=== PATIENT | female | born 1995 | race Caucasian/White ===

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

== ENCOUNTER 2017-07-18 18:50 | Emergency (ER) | payer SELFPAY ==
[~2017-07-18] VITALS: Ht 167.6 cm; Wt 72.8 kg
[2017-07-18 18:56] VITALS: BP 121/68; PULSE 90; RESP 16; TEMP 98.4; O2SAT 98
[2017-07-18] MEDS ORDERED: PROCHLORPERAZINE INJ 10 MG/2 ML VIAL IV PUSH ONE (19:30)
[2017-07-18] MEDS ORDERED: KETOROLAC TROMETHAMINE 30 MG/ML (IVP) VIAL IV PUSH ONE (19:30)
[2017-07-18] MEDS ORDERED: SODIUM CHLOR 0.9% 1000 ML INJ 1,000 ML IV ONE (19:30)
--- NOTE | 2017-07-18 19:31 | PD ---
HPI Chief Complaint: Headache Time Seen by Provider: 19:08 Travel History International Travel<30 days: No Contact w/Intl Traveler<30days: No Traveled to known affect area: No History of Present Illness HPI This 22-year-old female is complaining of bilateral throbbing headache. She says she has a history of migraines for the last 8 years. This is similar to previous headaches as throbbing bilateral headache. She has some nausea but has not vomited. PFSH Past Medical History Asthma: Yes Anxiety: Yes Developmental Delay: No Diminished Hearing: No Headaches: Yes (MIGRAINES) Respiratory: Yes (asthma as child) Immunizations Current: Yes Migraines: Yes Tetanus Vaccination: Unknown Influenza Vaccination: No ?: Unknown LMP: 07/15/2017 : 0 Past Surgical History Surgical History: No Previous Surgery Social History Alcohol Use: Yes (OCC) Tobacco Use: Yes (11/17 PPD) Substance Use: No Allergies-Medications (Allergen,Severity, Reaction): Coded Allergies: ceftriaxone (Verified Allergy, Severe, RASH, 07/18/17) diphenhydramine (Verified Allergy, Severe, HIVES W/ LIQUID BENADRYL, ) hyoscyamine (Verified Allergy, Severe, SHALLOW BREATHING, 07/18/17) penicillin G (Verified Allergy, Severe, RASH, 07/18/17) hydrocodone (Unverified Allergy, Unknown, Nausea/Vomiting, 07/18/17) Reported Meds & Prescriptions Reported Meds & Active Scripts Active No Active Prescriptions or Reported Medications Review of Systems General / Constitutional: No: Fever, Chills Eyes: No: Diploplia, Photophobia HENT: Positive: Headaches, No: Vertigo Cardiovascular: No: Chest Pain or Discomfort, Palpitations Respiratory: No: Cough, Shortness of Breath Gastrointestinal: Positive: Nausea, No: Vomiting Genitourinary: No: Urgency, Frequency Musculoskeletal: No: Weakness Physical Exam Narrative GENERAL: Well-developed female SKIN: Focused skin assessment warm/dry. HEAD: Atraumatic. Normocephalic. EYES: Pupils equal and round. No scleral icterus. No injection or drainage. ENT: No nasal bleeding or discharge. Mucous membranes pink and moist. NECK: Trachea midline. No JVD. Neck is supple CARDIOVASCULAR: Regular rate and rhythm. No murmur appreciated. RESPIRATORY: No accessory muscle use. Clear to auscultation. Breath sounds equal bilaterally. GASTROINTESTINAL: Abdomen soft, non-tender, nondistended. Hepatic and splenic margins not palpable. MUSCULOSKELETAL: No obvious deformities. No clubbing. No cyanosis. No edema. NEUROLOGICAL: Awake and alert. No obvious cranial nerve deficits. Motor grossly within normal limits. Normal speech. PSYCHIATRIC: Appropriate mood and affect; insight and judgment normal. Data Data Last Documented VS Vital Signs Date Time Temp Pulse Resp B/P (MAP) Pulse Ox O2 Delivery O2 Flow Rate FiO2 07/18/17 20:32 17 07/18/17 18:56 98.4 90 121/68 (85) 98 Orders Orders Sodium Chlor 0.9% 1000 Ml Inj (Ns 1000 M (07/18/17 19:30) Prochlorperazine Inj (Compazine Inj) (07/18/17 19:30) Ketorolac Inj (Toradol Inj) (07/18/17 19:30) MDM Medical Decision Making Medical Screen Exam Complete: Yes Emergency Medical Condition: Yes Medical Record Reviewed: Yes Differential Diagnosis Differential includes migraine headache, tension headache Narrative Course Patient has been given IV fluids and Toradol and Compazine and reports improvement in her headache Diagnosis Primary Impression: Migraine headache Qualified Codes: G43.009 - Migraine without aura, not intractable, without status migrainosus Scripts No Active Prescriptions or Reported Meds Disposition: 01 DISCHARGE HOME Condition: Stable Horace Smith MD Jul 18, 2017 19:31
[2017-07-18 20:10] VITALS: BP 113/63; PULSE 60; RESP 17; TEMP 97.8; O2SAT 99
[2017-07-18 20:32] VITALS: RESP 17
== END 2017-07-18 20:56 | disposition home or self-care (01) ==
LOC: PHED 18:50
DX: G43.009 Migraine without aura, not intractable, without status migrainosus (principal); R11.0 Nausea; F17.200 Nicotine dependence, unspecified, uncomplicated; Z87.09 Personal history of other diseases of the respiratory system; Z86.59 Personal history of other mental and behavioral disorders; Z86.69 Personal history of other diseases of the nervous system and sense organs
CPT/HCPCS: 96361; 96374; 96375; 99284; J0780; J1885; J7030

== ENCOUNTER 2017-10-25 13:06 | Emergency (ER) | payer MEDICAID ==
[~2017-10-25] VITALS: Ht 167.6 cm; Wt 72.3 kg
[2017-10-25 13:08] VITALS: BP 133/69; PULSE 63; RESP 16; TEMP 97.6; O2SAT 100
--- NOTE | 2017-10-25 13:27 | PD ---
HPI Chief Complaint: Dizziness Time Seen by Provider: 13:15 Travel History International Travel<30 days: No Contact w/Intl Traveler<30days: No Traveled to known affect area: No History of Present Illness HPI PATIENT STATES THAT SHE HAS BEEN HAVING EPISODES OF DIZZINESS, INTERMITTENT, WITHOUT ANY APPARENT AGGRAVATING/ALLEVIATING FACTORS. PT DENIES ASSOC FACTORS OF WARNER/N/V/D/CP/ABDPAIN/BACK PAIN/NUMBNESS OR LATERALIZING WEAKNESS. PATIENT ALSO STATED THAT SHE WAS 2 WEEKS LATE FOR HER PERIOD. DENIES ANY PELVIC PAIN OR VAGINAL DISCHARGE. CHART AND RN NOTES REVIEWED ALL: MULTIPLE AND REVIEWED PCP PMHX:CHRONIC MIGRAINE, CHILDHOOD ASTHMA PSHX: DENIES PFSH Past Medical History Hx Anticoagulant Therapy: No Asthma: Yes Anxiety: Yes Developmental Delay: No Diabetes: No Diminished Hearing: No Headaches: Yes (MIGRAINES) Respiratory: Yes (asthma as child) Immunizations Current: Yes Migraines: Yes ?: Unknown : 0 Social History Alcohol Use: Yes (OCC) Tobacco Use: Yes (1/2 PPD) Substance Use: No Allergies-Medications (Allergen,Severity, Reaction): Coded Allergies: ceftriaxone (Verified Allergy, Severe, RASH, 10/25/17) diphenhydramine (Verified Allergy, Severe, HIVES W/ LIQUID BENADRYL, 10/25) hyoscyamine (Verified Allergy, Severe, SHALLOW BREATHING, 10/25/17) penicillin G (Verified Allergy, Severe, RASH, 10/25/17) hydrocodone (Unverified Allergy, Unknown, Nausea/Vomiting, 10/25/17) Reported Meds & Prescriptions Reported Meds & Active Scripts Active No Active Prescriptions or Reported Medications Review of Systems Except as stated in HPI: all other systems reviewed are Neg General / Constitutional: No: Fever Eyes: No: Visual changes HENT: Positive: Lightheadedness Cardiovascular: No: Chest Pain or Discomfort Respiratory: No: Shortness of Breath Gastrointestinal: No: Abdominal Pain Genitourinary: No: Dysuria Musculoskeletal: No: Pain Skin: No Rash Neurologic: No: Weakness Psychiatric: No: Depression Endocrine: No: Polydipsia Hematologic/Lymphatic: No: Easy Bruising Physical Exam Narrative GENERAL: SKIN: Warm and dry. HEAD: Atraumatic. Normocephalic. EYES: Pupils equal and round. No scleral icterus. No injection or drainage. ENT: No nasal bleeding or discharge. Mucous membranes pink and moist. NECK: Trachea midline. No JVD. CARDIOVASCULAR: Regular rate and rhythm. RESPIRATORY: No accessory muscle use. Clear to auscultation. Breath sounds equal bilaterally. GASTROINTESTINAL: Abdomen soft, non-tender, nondistended. MUSCULOSKELETAL: Extremities without clubbing, cyanosis, or edema. No obvious deformities. NEUROLOGICAL: Awake and alert. No obvious cranial nerve deficits. Motor grossly within normal limits. Five out of 5 muscle strength in the arms and legs. Normal speech. PSYCHIATRIC: Appropriate mood and affect; insight and judgment normal. Data Data Last Documented VS Vital Signs Date Time Temp Pulse Resp B/P (MAP) Pulse Ox O2 Delivery O2 Flow Rate FiO2 10/25/17 13:41 70 16 122/59 (80) 84 16 135/67 (89) 89 16 122/64 (83) 10/25/17 13:08 97.6 100 Orders Orders Electrocardiogram (10/25/17 13:15) Urinalysis - C+S If Indicated (10/25/17 13:15) Orthostatic Vital Signs (10/25/17 13:15) Ed Urine Pregnancytest Poc (10/25/17 13:15) Drug Screen, Random Urine (10/25/17 13:15) Blood Glucose (10/25/17 13:15) Ct Brain W/O Iv Contrast(Rout) (10/25/17 13:22) Urine Culture (10/25/17 13:20) Labs Laboratory Tests Test 10/25/17 13:20 Urine Collection Type CLEAN CATCH Urine Color STRAW Urine Turbidity CLEAR Urine pH 6.0 Urine Specific [place] 1.009 Urine Protein NEG mg/dL Urine Glucose (UA) NEG mg/dL Urine Ketones NEG mg/dL Urine Occult Blood TRACE Urine Nitrite NEG Urine Bilirubin NEG Urine Leukocyte Esterase NEG Urine RBC 0-3 /hpf Urine WBC 0-2 /hpf Urine Squamous Epithelial Cells 6-8 /hpf Urine Bacteria MOD /hpf Microscopic Urinalysis Comment CULTURE INDICATED Urine Opiates Screen NEG Urine Barbiturates Screen NEG Urine Amphetamines Screen NEG Urine Benzodiazepines Screen NEG Urine Cocaine Screen NEG Urine Cannabinoids Screen NEG MDM Medical Decision Making Medical Screen Exam Complete: Yes Emergency Medical Condition: Yes Medical Record Reviewed: Yes Interpretation(s) NSR 82, NL INTERVALS, NO STEMI PATTERN PULSE OX 97, RA, NORMAL AND WITH GOOD PLETH WAVE Differential Diagnosis HYPOGLYCEMIA V RELATED V ORTHOSTASIS V BRAIN MASS V ICH V SINUSITIS V DYSRYTHMIA V UTI V DRUG USE Narrative Course NEGATIVE TEST, NONDIAGNOSTIC EKG, NO ORTHOSTASIS PRESENT EITHER. CT HEAD DOES NOT SHOW MASS/ICH/SINUSITIS...HOWEVER YOUR URINE DID SHOW A URINARY TRACT INFECTION Diagnosis Primary Impression: Dizziness Additional Impression: UTI (urinary tract infection) Qualified Codes: N30.00 - Acute cystitis without hematuria Patient Instructions: General Instructions, Urinary Tract Infection in Women ( ED) Additional Instructions: FOLLOWUP WITH YOUR PRIMARY CARE PHYSICIAN FOR ADDITIONAL TESTING FOR YOUR DIZZINESS. TODAY YOU WERE NOT , YOU WERE NOT DEHYDRATED, AND DID NOT HAVE LOW BLOOD SUGAR. ALSO YOUR CAT SCAN DID NOT SHOW BRAIN BLEED, BRAIN MASS OR SINUS INFECTION....YOUR EKG WAS NORMAL....HOWEVER YOU DID HAVE A BLADDER INFECTION Scripts Nitrofurantoin Monohydrate Macrocrystals (Macrobid) 100 Mg Capsule 100 MG PO BID for Infection, #14 CAP 0 Refills Prov: Chicho Leahy MD 10/25/17 Disposition: 01 DISCHARGE HOME Condition: Stable Chicho Leahy MD Oct 25, 2017 13:27
[2017-10-25 13:30] LABS: BLOOD, URINE TRACE (NEG); GLUCOSE,URINE NEG (NEG); KETONE, URINE NEG (NEG); NITRITE,URINE NEG (NEG)
[2017-10-25 13:36] LABS: METHOD OF COLLECTION CLEAN CATCH; URINE COLOR STRAW (YELLW/STRAW); WBC, URINE 0-2 /hpf (0-5)
[2017-10-25 13:37] LABS: BACTERIA, URINE MOD /hpf; COMMENT (UR) CULTURE INDICATED; CULTURE IF INDICATED CULTURE INDICATED; RBC, URINE 0-3 /hpf (0-3)
[2017-10-25 13:41] VITALS: BP_SYST 122; BP_SYST 135; BP_DIAS 59; BP_DIAS 64; BP_DIAS 67; RESP 16
--- NOTE | 2017-10-25 14:05 | RADRPT ---
EXAM DATE/TIME: 10/25/2017 13:51 [facility] COMPARISON: CT BRAIN W/O CONTRAST, April 25, 2012, 0:42. INDICATIONS : Dizziness. RADIATION DOSE: 57.75 CTDIvol (mGy) MEDICAL HISTORY : None SURGICAL HISTORY : None. ENCOUNTER: Initial ACUITY: 2 weeks PAIN SCALE: 0/10 LOCATION: cranial TECHNIQUE: Multiple contiguous axial images were obtained of the head. Using automated exposure control and adj ustment of the mA and/or kV according to patient size, radiation dose was kept as low as reasonably a chievable to obtain optimal diagnostic quality images. DICOM format image data is available electro nically for review and comparison. FINDINGS: CEREBRUM: The ventricles are normal for age. No evidence of midline shift, mass lesion, hemorrhage or acute in farction. No extra-axial fluid collections are seen. POSTERIOR FOSSA: The cerebellum and brainstem are intact. The 4th ventricle is midline. The cerebellopontine angle i s unremarkable. EXTRACRANIAL: The visualized portion of the orbits is intact. SKULL: The calvaria is intact. No evidence of skull fracture. No significant change compared to the prior study. CONCLUSION: Normal examination for a patient of this age. No significant change has occurred. Aubrey Rosales MD on October 25, 2017 at 14:02 Board Certified Radiologist. This report was verified electronically.
[2017-10-25] MEDS ORDERED: MACR100C2 PO (14:11)
[2017-10-25 14:23] VITALS: BP 126/67
--- NOTE | 2017-10-26 17:43 | EKG ---
Date Performed: 10/25/2017 Time Performed: 13:24:20 PTAGE: 22 years EKG: Sinus rhythm NORMAL ECG NO PREVIOUS TRACING DOCTOR: Orlin Julio Interpretating Date/Time 10/26/2017 17:41:49
== END 2017-10-25 14:35 | disposition home or self-care (01) ==
LOC: PHED 13:06
DX: R42 Dizziness and giddiness (principal); J45.909 Unspecified asthma, uncomplicated; N30.00 Acute cystitis without hematuria; Z72.0 Tobacco use; Z72.89 Other problems related to lifestyle
CPT/HCPCS: 70450; 80307; 81001; 84703; 87086; 93005; 99285

== ENCOUNTER 2018-01-30 06:15 | Emergency (ER) | payer MEDICAID ==
[~2018-01-30] VITALS: Ht 167.6 cm; Wt 69.2 kg
[~2018-01-30 06:15] MED LIST: MACR100C2 PO
[2018-01-30 06:21] VITALS: BP 112/66; PULSE 92; RESP 14; TEMP 98.8; O2SAT 98
[2018-01-30] MEDS ORDERED: BIRTH CONTROL PILL PO (06:27)
--- NOTE | 2018-01-30 07:34 | PD ---
HPI Chief Complaint: Cold / Flu Symptoms Time Seen by Provider: 07:33 Travel History International Travel<30 days: No Contact w/Intl Traveler<30days: No Traveled to known affect area: No History of Present Illness HPI Patient came in complaining of 2 day history of runny nose, cough, sore throat, but denies nausea vomiting or diarrhea at this present time. Also denies any associated factors such as rash, chest pain, headache, abdominal pain, or back pain. Patient states no alleviating or aggravating factors. Allergies to Rocephin, penicillin with a reaction of rash, also states allergy to hydrocodone, however it is more of an adverse effect since she develops nausea. Patient denies any past medical surgical history PFSH Past Medical History Hx Anticoagulant Therapy: No Asthma: Yes Anxiety: Yes Developmental Delay: No Diabetes: No Diminished Hearing: No Headaches: Yes (MIGRAINES) Respiratory: Yes (asthma as child) Immunizations Current: Yes Migraines: Yes Tetanus Vaccination: > 5 Years Influenza Vaccination: No ?: Not LMP: 01/22/18 : 0 Past Surgical History Surgical History: No Previous Surgery Social History Alcohol Use: Yes (OCC) Tobacco Use: Yes (1 PPD) Substance Use: No Allergies-Medications (Allergen,Severity, Reaction): Coded Allergies: ceftriaxone (Verified Allergy, Severe, RASH, 01/30/18) diphenhydramine (Verified Allergy, Severe, HIVES W/ LIQUID BENADRYL, ) hyoscyamine (Verified Allergy, Severe, SHALLOW BREATHING, 01/30/18) penicillin G (Verified Allergy, Severe, RASH, 01/30/18) hydrocodone (Unverified Allergy, Unknown, Nausea/Vomiting, 01/30/18) Reported Meds & Prescriptions Reported Meds & Active Scripts Active Reported [ Control Pill] 1 Tab PO DAILY Review of Systems General / Constitutional: No: Fever Eyes: No: Visual changes HENT: Positive: Headaches, Sore Throat, Rhinorrhea Cardiovascular: No: Chest Pain or Discomfort Respiratory: No: Shortness of Breath Gastrointestinal: No: Abdominal Pain Genitourinary: No: Dysuria Musculoskeletal: No: Pain Skin: No Rash Neurologic: No: Weakness Psychiatric: No: Depression Endocrine: No: Polydipsia Hematologic/Lymphatic: No: Easy Bruising Physical Exam Narrative GENERAL: [-] SKIN: Focused skin assessment warm/dry. HEAD: Atraumatic. Normocephalic. EYES: Pupils equal and round. No scleral icterus. No injection or drainage. ENT: No nasal bleeding or discharge. Mucous membranes pink and moist. Clear rhinorrhea, injected oropharynx but without any exudates. NECK: Trachea midline. No JVD. CARDIOVASCULAR: Regular rate and rhythm. No murmur appreciated. RESPIRATORY: No accessory muscle use. Clear to auscultation. Breath sounds equal bilaterally. GASTROINTESTINAL: Abdomen soft, non-tender, nondistended. Hepatic and splenic margins not palpable. MUSCULOSKELETAL: No obvious deformities. No clubbing. No cyanosis. No edema. NEUROLOGICAL: Awake and alert. No obvious cranial nerve deficits. Motor grossly within normal limits. Normal speech. PSYCHIATRIC: Appropriate mood and affect; insight and judgment normal. Data Data Last Documented VS Vital Signs Date Time Temp Pulse Resp B/P (MAP) Pulse Ox O2 Delivery O2 Flow Rate FiO2 01/30/18 06:42 Room Air 01/30/18 06:21 98.8 92 14 112/66 (81) 98 Orders Orders Influenzae A/B Antigen (01/30/18 06:33) Group A Rapid Strep Screen (01/30/18 06:33) Strep Culture (Group A) (01/30/18 06:35) Tramadol (Ultram) (01/30/18 07:45) MDM Medical Decision Making Medical Screen Exam Complete: Yes Emergency Medical Condition: Yes Medical Record Reviewed: Yes Differential Diagnosis URI versus flu versus strep Narrative Course Screening strep test negative screening flu test is negative. Diagnosis Primary Impression: Viral syndrome Patient Instructions: General Instructions, Viral Syndrome (DC) Scripts Oseltamivir (Tamiflu) 75 Mg Cap 75 MG PO BID for Mgmt Viral Infection for 5 Days, #10 CAP 0 Refills Prov: Chicho Leahy MD 01/30/18 Ondansetron Odt (Zofran Odt) 4 Mg Tab 4 MG SL Q6HR Y for Nausea/Vomiting, #20 TAB 0 Refills Prov: Chicho Leahy MD 01/30/18 Tramadol (Ultram) 50 Mg Tab 50 MG PO Q6H Y for PAIN, #15 TAB 0 Refills Prov: Chicho Leahy MD 01/30/18 Disposition: 01 DISCHARGE HOME Condition: Stable Chicho Leahy MD Jan 30, 2018 07:34
[2018-01-30] MEDS ORDERED: ZOFR4TAB3 SL (07:40)
[2018-01-30] MEDS ORDERED: OSEL75 PO (07:40)
[2018-01-30] MEDS ORDERED: TRAM50 PO (07:40)
[2018-01-30] MEDS ORDERED: traMADol HCL 50 MG TAB PO ONE (07:45)
[2018-01-30 08:42] VITALS: RESP 16
== END 2018-01-30 09:10 | disposition home or self-care (01) ==
LOC: PHED 06:15
DX: B34.9 Viral infection, unspecified (principal); R05 Cough; R07.0 Pain in throat; R09.89 Other specified symptoms and signs involving the circulatory and respiratory systems; F17.200 Nicotine dependence, unspecified, uncomplicated; Z87.09 Personal history of other diseases of the respiratory system; Z86.59 Personal history of other mental and behavioral disorders; Z86.69 Personal history of other diseases of the nervous system and sense organs
CPT/HCPCS: 87081; 87804; 87880; 99284

== ENCOUNTER 2018-04-14 17:49 | Emergency (ER) | payer MEDICAID ==
[~2018-04-14] VITALS: Ht 167.6 cm; Wt 66.3 kg
[~2018-04-14 17:49] MED LIST changes: +BIRTH CONTROL PILL PO; -MACR100C2 PO; +OSEL75 PO; +TRAM50 PO; +ZOFR4TAB3 SL
[2018-04-14 17:53] VITALS: BP 119/78; PULSE 77; RESP 18; TEMP 97.7; O2SAT 96
--- NOTE | 2018-04-14 18:20 | PD ---
HPI Chief Complaint: Headache Time Seen by Provider: 18:12 Travel History International Travel<30 days: No Contact w/Intl Traveler<30days: No Traveled to known affect area: No History of Present Illness HPI 22-year-old female here with 3 day history of headache. She reports a history of migraines. She reports this headache is similar to her prior migraines. There was a gradual onset of a left frontal headache. No sensitivity to light. Denies head injury or trauma. Mild nausea without vomiting. Symptom severity is mild to moderate. No aggravating or alleviating factors. She reports typical treatment for her migraines as a shot of Toradol and Zofran. She denies fever, chills, neck pain, paresthesia or weakness of the extremities. PFSH Past Medical History Medical History: Denies Significant Hx (Significant for asthma, anxiety, migraine headaches) Hx Anticoagulant Therapy: No Asthma: Yes Anxiety: Yes Developmental Delay: No Diabetes: No Diminished Hearing: No Headaches: Yes (MIGRAINES) Respiratory: Yes (asthma as child) Immunizations Current: Yes Migraines: Yes Tetanus Vaccination: Unknown Influenza Vaccination: No ?: Unknown LMP: 03/04/18- 3 DAYS LONG : 0 Social History Alcohol Use: Yes (OCC) Tobacco Use: Yes (1 PPD) Substance Use: No Allergies-Medications (Allergen,Severity, Reaction): Coded Allergies: ceftriaxone (Verified Allergy, Severe, RASH, 04/14/18) diphenhydramine (Verified Allergy, Severe, HIVES W/ LIQUID BENADRYL, ) hyoscyamine (Verified Allergy, Severe, SHALLOW BREATHING, 04/14/18) penicillin G (Verified Allergy, Severe, RASH, 04/14/18) hydrocodone (Unverified Allergy, Unknown, Nausea/Vomiting, 04/14/18) Reported Meds & Prescriptions Reported Meds & Active Scripts Active Tamiflu (Oseltamivir Phosphate) 75 Mg Cap 75 Mg PO BID 5 Days Zofran Odt (Ondansetron Odt) 4 Mg Tab 4 Mg SL Q6HR PRN Ultram (Tramadol HCl) 50 Mg Tab 50 Mg PO Q6H PRN Reported [ Control Pill] 1 Tab PO DAILY Review of Systems Except as stated in HPI: all other systems reviewed are Neg General / Constitutional: No: Fever Eyes: No: Visual changes HENT: Positive: Headaches Cardiovascular: No: Chest Pain or Discomfort Respiratory: No: Shortness of Breath Gastrointestinal: No: Abdominal Pain Genitourinary: No: Dysuria Musculoskeletal: No: Pain Skin: No Rash Physical Exam Narrative GENERAL: Alert and well-appearing 22-year-old female SKIN: Warm and dry. HEAD: Atraumatic. Normocephalic. EYES: Pupils equal and round. EOMs intact. No injection or drainage. No photophobia ENT: No nasal bleeding or discharge. Mucous membranes pink and moist. NECK: Trachea midline. No meningismus. Can freely move the neck. CARDIOVASCULAR: Regular rate and rhythm. RESPIRATORY: No accessory muscle use. Clear to auscultation. Breath sounds equal bilaterally. GASTROINTESTINAL: Abdomen soft, non-tender, nondistended. MUSCULOSKELETAL: Extremities without clubbing, cyanosis, or edema. No obvious deformities. NEUROLOGICAL: Awake and alert. No obvious cranial nerve deficits. Motor grossly within normal limits. Five out of 5 muscle strength in the arms and legs. Normal speech. PSYCHIATRIC: Appropriate mood and affect; insight and judgment normal. Data Data Last Documented VS Vital Signs Date Time Temp Pulse Resp B/P (MAP) Pulse Ox O2 Delivery O2 Flow Rate FiO2 04/14/18 17:53 97.7 77 18 119/78 (92) 96 Orders Orders Ed Urine Pregnancytest Poc (04/14/18 18:14) Ketorolac Inj (Toradol Inj) (04/14/18 18:30) Ondansetron Odt (Zofran Odt) (04/14/18 18:30) MDM Medical Decision Making Medical Screen Exam Complete: Yes Emergency Medical Condition: Yes Differential Diagnosis Migraine headache, tension headache, SAH unlikely Narrative Course 22-year-old female with history of migraines presents with a 3 day history a left frontal headache. She reports this headache is similar to her priors. She has a normal neurologic exam. She is well-appearing. She was given a shot of Toradol, Zofran and observed. She reports symptom improvement is requesting discharge. Diagnosis Primary Impression: Headache Qualified Codes: R51 - Headache Referrals: Primary Care Physician Additional Instructions: Ibuprofen 800 mg as needed for headache. Follow-up with her primary doctor. Return if he develop new or worsening symptoms Scripts Ibuprofen (Ibuprofen) 800 Mg Tab 800 MG PO Q6HR Y for PAIN, #40 TAB 0 Refills Prov: Yesenia Morales 04/14/18 Disposition: 01 DISCHARGE HOME Condition: Stable Yesenia Morales April 14, 2018 18:20
[2018-04-14] MEDS ORDERED: KETOROLAC TROMETHAMINE 60 MG/2 ML (IM) VIAL IM ONE (18:30)
[2018-04-14] MEDS ORDERED: ONDANSETRON ODT 4 MG TAB PO ONE (18:30)
[2018-04-14] MEDS ORDERED: IBUP1TAB7 PO (19:06)
== END 2018-04-14 19:20 | disposition home or self-care (01) ==
LOC: PHEFT 17:49
DX: R51 Headache (principal); J45.909 Unspecified asthma, uncomplicated; F41.9 Anxiety disorder, unspecified; F17.200 Nicotine dependence, unspecified, uncomplicated; Z79.3 Long term (current) use of hormonal contraceptives; Z79.899 Other long term (current) drug therapy; Z88.0 Allergy status to penicillin; Z88.5 Allergy status to narcotic agent; Z88.8 Allergy status to other drugs, medicaments and biological substances
CPT/HCPCS: 84703; 96372; 99283; J1885